=== PATIENT | female | born 1960 | race Caucasian/White ===

== ENCOUNTER 2017-05-17 12:54 | Emergency (ER) | payer OTHER ==
[~2017-05-17] VITALS: Ht 157.5 cm; Wt 70.0 kg
[~2017-05-17 12:54] MED LIST: BACLOFEN10 MG PO; BACTRIM DS1 TAB PO; BUSPAR15 MG PO; CLONAZEPAM1 M1 PO; CLONAZEPAM1 MG PO; FLEXERIL OR; FLEXERIL PO; GABAPENTIN300 MG PO; HALDOL5 MG PO; KLONOPIN1 MG PO; LORTAB 5/3255 MG PO; LORTAB5 OR; MIRTAZAPINE45 M1 PO; MIRTAZAPINE45 M2 PO; NAPROSYN500 MG OR; NAPROSYN500 MG PO; TRAZODONE100 MG OR; TRAZODONE100 MG PO; VALIUM5 MG PO; XANAX0.5 MG OR; [UNRECOGNIZED DRUG - OTHER] VA
[2017-05-17] MEDS ORDERED: CYMBALTA20 MG PO (13:05)
[2017-05-17] MEDS ORDERED: PERCOCET 5/325M1 TAB PO (14:26)
[2017-05-17] MEDS ORDERED: PREDNISONE50 MG PO (14:26)
[2017-05-17 14:42] VITALS: BP 133/71
== END 2017-05-17 14:50 | disposition home or self-care (01) | DRG 563 ==
LOC: ED 12:54
DX: S92.322A Displaced fracture of second metatarsal bone, left foot, initial encounter for closed fracture (principal); S93.115A Dislocation of interphalangeal joint of left lesser toe(s), initial encounter; S92.332A Displaced fracture of third metatarsal bone, left foot, initial encounter for closed fracture; W01.0XXA Fall on same level from slipping, tripping and stumbling without subsequent striking against object, initial encounter; Y93.H2 Activity, gardening and landscaping; Y92.007 Garden or yard of unspecified non-institutional (private) residence as the place of occurrence of the external cause

== ENCOUNTER 2018-11-25 16:24 | Emergency (ER) | payer OTHER ==
[~2018-11-25] VITALS: Ht 157.5 cm; Wt 74.4 kg
[~2018-11-25 16:24] MED LIST changes: +CYMBALTA20 MG PO; +PERCOCET 5/325M1 TAB PO; +PREDNISONE50 MG PO
[2018-11-25] MEDS ORDERED: DULOXETINE HCL30 MG PO (16:45)
[2018-11-25] MEDS ORDERED: CLONAZEPAM1 M1 PO (16:46)
[2018-11-25] MEDS ORDERED: DOXEPIN HCL50 MG PO (16:47)
[2018-11-25] MEDS ORDERED: ATORVASTATIN CA40 MG PO (16:47)
[2018-11-25] MEDS ORDERED: FLEXERIL5 M1 PO (17:06)
[2018-11-25 17:15] VITALS: BP 116/64
== END 2018-11-25 17:15 | disposition home or self-care (01) ==
LOC: ED 16:24
DX: S13.4XXA Sprain of ligaments of cervical spine, initial encounter (principal); X50.1XXA Overexertion from prolonged static or awkward postures, initial encounter; Y93.84 Activity, sleeping; Y92.003 Bedroom of unspecified non-institutional (private) residence as the place of occurrence of the external cause

== ENCOUNTER 2019-05-02 07:59 | Day surgery (SDC) | payer OTHER ==
[~2019-05-02] VITALS: Ht 157.5 cm; Wt 69.9 kg
[~2019-05-02 07:59] MED LIST changes: +ATORVASTATIN CA40 MG PO; +DOXEPIN HCL50 MG PO; +DULOXETINE HCL30 MG PO; +FLEXERIL5 M1 PO; +IRON325 M1; +LEVOTHYROXIN75 MCG PO; +PROTONIX40 M2 PO
[2019-05-02 10:08] VITALS: BP 129/63
== END 2019-05-02 09:56 | disposition home or self-care (01) ==
LOC: ENDO 07:59
PROVIDERS: ATTEND Surgery
DX: Z12.11 Encounter for screening for malignant neoplasm of colon (principal); K63.5 Polyp of colon; F17.210 Nicotine dependence, cigarettes, uncomplicated

== ENCOUNTER 2019-10-21 | Emergency (ER) | payer OTHER ==
[2019-10-21] MEDS ORDERED: KEFLEX500 M1 PO (15:56)
== END 2019-10-21 15:58 | disposition home or self-care (01) ==
DX: S81.012A Laceration without foreign body, left knee, initial encounter (principal); W10.9XXA Fall (on) (from) unspecified stairs and steps, initial encounter; Y92.009 Unspecified place in unspecified non-institutional (private) residence as the place of occurrence of the external cause; S60.041A Contusion of right ring finger without damage to nail, initial encounter; S90.511A Abrasion, right ankle, initial encounter; W18.30XA Fall on same level, unspecified, initial encounter

== ENCOUNTER 2019-12-19 | Emergency (ER) | payer OTHER ==
[~2019-12-19] MED LIST changes: +KEFLEX500 M1 PO
[2019-12-19 14:02] LABS: HEMATOCRIT 38.2 % (37.0-47.0); HEMOGLOBIN 12.6 g/dl (12.0-16.0); IMMATURE GRANULOCYTES 0.2 % (0.0-5.0); MEAN CELL VOLUME 94.6 fL CALC (80.0-100.0); MEAN CORPUSCULAR HGB 31.2 pG CALC (26.0-32.0); NEUT# 4.98 thou/uL (2.00-7.15); RED BLOOD COUNT 4.04 mill/uL (4.20-5.60); RED CELL DISTRI WIDTH 12.8 % (11.5-15.5)
[2019-12-19 14:44] LABS: ALBUMIN 4.6 g/dL (3.2-5.0); ALKALINE PHOSPHATASE 99 u/l (38-126); BILIRUBIN, TOTAL 0.4 mg/dL (0.0-1.4); BUN 12 mg/dL (7-17); BUN/CREATININE RATIO 11 (12-20 (CALC)); CARBON DIOXIDE 25 mmol/l (22-30); CHLORIDE 96 mmol/l (95-108); CREATININE 1.1 mg/dL (0.5-1.0); GFR 51 ML/MIN (>=60 (CALC)); GFR FOR AFR.AMER. > 60 ML/MIN (>=60 (CALC)); POTASSIUM 4.5 mmol/l (3.5-5.1); SGOT/AST 34 u/l (14-36); TOTAL PROTEIN 7.6 g/dL (6.3-8.2)
[2019-12-19 14:50] LABS: ANION GAP 13 (6-22 (CALC)); SODIUM 129 mmol/l (137-146)
[2019-12-19 14:58] LABS: URINE BILIRUBIN - DIPSTICK NEGATIVE (NEGATIVE); URINE BLOOD DIPSTICK NEGATIVE (NEGATIVE); URINE CLARITY CLEAR; URINE COLOR YELLOW; URINE GLUCOSE - DIPSTICK NEGATIVE (NEGATIVE); URINE KETONE NEGATIVE (NEGATIVE); URINE LEUK ESTERASE NEGATIVE (Negative); URINE NITRITE - DIPSTICK NEGATIVE (Negative); URINE PH 6.5 (4.5-8.0); URINE PROTEIN - DIPSTICK NEGATIVE (NEG-TRACE); URINE SPECIFIC GRAVITY 1.015; URINE UROBILINOGEN - DIPSTICK 0.2 E.U./dL (0.2)
[2019-12-19] MEDS ORDERED: TESSALON PERLE100 MG PO (15:40)
[2019-12-19] MEDS ORDERED: ZPAK PO (15:40)
--- NOTE | 2019-12-22 09:35 | NUR ---
Notified patient of Covid results (Negative). Advised patient to follow up with PCP or return to ED for urgent needs. Advised patient to continue with Covid prevention practices. Patient verbalized understanding.
== END 2019-12-19 15:54 | disposition home or self-care (01) ==
DX: J40 Bronchitis, not specified as acute or chronic (principal); E87.1 Hypo-osmolality and hyponatremia; F41.9 Anxiety disorder, unspecified; F17.290 Nicotine dependence, other tobacco product, uncomplicated; Z20.828 Contact with and (suspected) exposure to other viral communicable diseases